=== PATIENT | male | born 1950 | race Caucasian/White ===

== ENCOUNTER → 2023-08-20 15:22 | Outpatient (REF) | payer MEDICARE, SELFPAY ==
--- NOTE | 2023-08-20 15:29 | CA_ITS ---
Transthoracic Echocardiogram Patient (Last, First, Middle): Ga Mcghee, Gender: Male Date of : 1950 Age: 73 Procedure Date: 08/20/2023 Procedure Type: Transthoracic Echocardiogram Location: OP Height: 180.34 cm Weight: 93.9 kg BSA: 2.14 m2 Heart Rate: bpm BP: 137 / 74 mmHg Technical Project Lead: ARELIS Referring MD: Francisco Stanley MD Symptoms: BULLOCK R06.09 Study Quality: Technically Difficult, contrast ECG Rhythm: Sinus Conclusions: - The left ventricular systolic function is normal. The calculated ejection fraction is 61% by biplane method. - There is moderate calcification of the aortic valve. There is moderate aortic valve stenosis. Findings Procedure Information Contrast agent, definity, is being given per protocol without apparent complications. Left Ventricle Normal left ventricular cavity size. There is mildly increased left ventricular wall thickness. The left ventricular systolic function is normal. The calculated ejection fraction is 61% by biplane method. There is no evidence of regional wall motion abnormalities. Evidence suggests grade I (mild) diastolic dysfunction. Right Ventricle Normal right ventricular cavity size and systolic function. Atria Both atria are normal in size. Aortic Valve There is moderate calcification of the aortic valve. There is moderate aortic valve stenosis. The peak aortic velocity is 2.51 m/s with a calculated peak gradient of 25 mmHg. The mean gradient is 18 mmHg. The aortic valve area is 1.12 cm2. There is no aortic valve regurgitation. Dimensionless index 0.41. Stroke volume index 31ml/m2. Mitral Valve There is mild mitral annular calcification. There is no mitral valve regurgitation. There is no mitral valve stenosis. Pulmonic Valve The pulmonic valve is likely normal. Tricuspid Valve There is trace tricuspid valve regurgitation. There is no evidence of pulmonary hypertension. Great Vessels The asc aorta is normal in size. Small plaque is seen in the sino tubular ridge. Venous The inferior vena cava is mildly dilated and collapses greater than 50% with inspiration. Pericardium/Pleural There is no evidence of pericardial effusion. Prior Study Comparison No prior study available for comparison. Measurements 2D Linear Measurements IVSd: 1.24 0.6-0.9/0.6-1.0 cm LVIDd: 4.35 3.9-5.3/4.2-5.9 cm LVIDd Index: 2.03 2.4-3.2/2.2-3.1 cm/m2 LVIDs: 2.84 2.0-3.6 cm LVPWd: 1.15 0.7-1.1 cm LA Diam: 3.60 2.7-3.8/3.0-4.0 cm LAIDs Index: 1.68 1.5-2.3 cm/m2 LV Mass: 232.82 67-162/88-224 g LV Mass Index: 108.80 43-95/49-115 g/m2 LVOT Diam: 1.90 3.0+(-)1.3 cm 2D Systolic Function EF 4C: 61.20 >55% EF 2C: 59.90 >55% EF BiP: 60.60 >55% Mitral Valve MV Pk E: 0.75 MV PK A: 1.03 MV Decel Time: 304.00 E/A: 0.70 E'Lateral: 5.44 E'Medial: 4.57 E/E' Med: 16.30 E/E' Lat: 13.70 PHT: 89.00 MVA PHT: 2.47 Decel Travis: 2.45 Aortic Valve AoV Pk Contreras: 2.51 AoV Mn Contreras: 2.04 AoV VTI: 0.59 AoV Pk Grad: 25.00 Aov Mn Grad: 18.00 ALDA Cont.VTI: 1.12 LVOT LVOT Pk Contreras: 1.04 LVOT Mn Contreras: 0.74 LVOT VTI: 0.23 LVOT Pk Grad: 4.00 LVOT Mn Grad: 3.00 LVOT Diam: 1.90 LVOT Area: 2.84 Diastolic Function MV Pk E: 0.75 MV Pk A: 1.03 E/A: 0.70 E'Medial: 4.57 E/E' Med: 16.30 E' Laterial: 5.44 E/E' Lat: 13.70 Right Ventricle TAPSE (mm): 23.00 TVS' Contreras: 15.90 Tricuspid Valve TR Pk Contreras: 2.28 TR Pk Grad: 21.00 RA Press: 8.00 RVSP: 29.00 Great Vessels Aorta Sinus of Valsalva: 3.61 2.0-3.[address] Ridge: 2.25 1.7-3.4 cm Ao Asc: 3.60 2.1-3.4 cm Updated in Other Vendor System with Status of Final Jake Ibarra MD electronically signed on 08/21/2023 11:10:25 AM with status of Final
== END ==
LOC: HO.CARD 15:22
PROVIDERS: PCP Pediatrics; Visit Provider Internal Medicine Critical Care Medicine
DX: R06.09 Other forms of dyspnea (principal)
CPT/HCPCS: 93306; Q9957

== ENCOUNTER → 2023-08-20 15:29 | Outpatient (BNV) | payer MEDICARE, SELFPAY | PROVIDERS: PCP Pediatrics; Visit Provider Internal Medicine | DX: I35.0 Nonrheumatic aortic (valve) stenosis (principal) | CPT/HCPCS: 93306 ==